=== PATIENT | female | born 1950 | race Caucasian/White ===

== ENCOUNTER 2018-10-28 20:47 | Emergency (ER) | payer OTHER, MEDICAID ==
[~2018-10-28] VITALS: Ht 149.9 cm; Wt 100.7 kg
[2018-10-28 20:56] VITALS: Ht 149.9 cm; Wt 100.7 kg
[2018-10-28 23:07] VITALS: BP 140/84
== END 2018-10-28 23:07 | disposition home or self-care (01) ==
LOC: ED 20:47
DX: J06.9 Acute upper respiratory infection, unspecified (principal); G44.209 Tension-type headache, unspecified, not intractable; E78.5 Hyperlipidemia, unspecified; H53.8 Other visual disturbances
CPT/HCPCS: J0780; J1885; Q0092